=== PATIENT | female | born 2005 | race African-American/Black ===

== ENCOUNTER 2025-05-13 10:52 | Emergency (ER) | payer SELFPAY ==
[~2025-05-13] VITALS: Ht 167.6 cm; Wt 73.0 kg
[2025-05-13 10:53] VITALS: O2SAT 100
[2025-05-13 13:29] LABS: INFLUENZA TYPE A Presumptive Negative (Pres. Neg.); INFLUENZA TYPE B Presumptive Negative (Pres. Neg.); RESPIRATORY SYNCYTIAL VIRUS Not Detected (Not Detectd)
[2025-05-13] MEDS ORDERED: ALBU2.5V13 NEB (13:53)
[2025-05-13] MEDS ORDERED: ALBU18HF2 IH (13:53)
[2025-05-13 14:21] VITALS: BP 128/63; PULSE 81; RESP 16; TEMP 37; O2SAT 100
== END 2025-05-13 14:41 | disposition home or self-care (01) ==
LOC: EDBD 10:52 → ER 11:13
DX: R06.02 Shortness of breath (principal); J45.909 Unspecified asthma, uncomplicated; Z76.0 Encounter for issue of repeat prescription
CPT/HCPCS: 71045; 81025; 87420; 87426; 87804; 99284